=== PATIENT | male | born 1985 | race Caucasian/White ===

== ENCOUNTER 2017-05-24 21:15 | Emergency (ER) | payer MEDICAID ==
[~2017-05-24] VITALS: Ht 185.4 cm; Wt 82.0 kg
[~2017-05-24 21:15] MED LIST: ALPR2TAB2 PO; BENZ2AMP4 PO; CLON-275 PO; DIVA500T4 PO; RISP2TAB35 PO
[2017-05-24] MEDS ORDERED: ZIPRASIDONE 20 MG INJ IM ONE ×2 (21:19→22:00)
[2017-05-24 21:56] LABS: DAU SCREEN DISCLAIMER
[2017-05-24 22:00] LABS: HEMATOCRIT 41.3 % (39.2-51.8); HEMOGLOBIN 13.9 g/dL (13.7-18.0); WHITE BLOOD COUNT 7.3 x10^3/uL (3.4-10)
[2017-05-24] MEDS ORDERED: PLEASE ENTER HEIGHT AND WEIGHT MC SCH (22:00)
[2017-05-24 22:11] LABS: ASPARTATE AMINO TRANSFERASE 22 U/L (15-37); BLOOD UREA NITROGEN 11 mg/dL (7-18)
[2017-05-24 22:14] LABS: ACETAMINOPHEN < 2 mcg/mL (10-30)
[2017-05-24 22:38] VITALS: BP 93/46
== END 2017-05-24 23:36 | disposition home or self-care (01) ==
LOC: ED 23:25
DX: G40.919 Epilepsy, unspecified, intractable, without status epilepticus (principal); F10.10 Alcohol abuse, uncomplicated; F10.129 Alcohol abuse with intoxication, unspecified; J44.9 Chronic obstructive pulmonary disease, unspecified
CPT/HCPCS: 36415; 80053; 80307; 80329; 85025; 96372; 99284; J3486; G0480

== ENCOUNTER 2017-05-25 17:35 | Emergency (ER) | payer MEDICAID ==
[~2017-05-25] VITALS: Ht 185.4 cm; Wt 70.7 kg
[2017-05-25 17:38] VITALS: BP 116/78
== END 2017-05-25 19:08 | disposition home or self-care (01) ==
LOC: ED 18:15
DX: S90.112A Contusion of left great toe without damage to nail, initial encounter (principal); J44.9 Chronic obstructive pulmonary disease, unspecified; F17.200 Nicotine dependence, unspecified, uncomplicated; W23.0XXA Caught, crushed, jammed, or pinched between moving objects, initial encounter; Y93.89 Activity, other specified; Y92.098 Other place in other non-institutional residence as the place of occurrence of the external cause; Y99.8 Other external cause status
CPT/HCPCS: 99284

== ENCOUNTER 2017-07-05 17:19 | Emergency (ER) | payer MEDICAID ==
[~2017-07-05] VITALS: Ht 185.4 cm; Wt 68.0 kg
[2017-07-05] MEDS ORDERED: SODIUM CHLORIDE 0.9% 1,000 ML IV ONE (17:32)
[2017-07-05] MEDS ORDERED: LORazepam 2 MG/ML, 1ML ONE ×2 (17:55→18:55)
[2017-07-05] MEDS ORDERED: SODIUM CHLORIDE 0.9% 1,000ML IVBOLUS ONE (18:00)
[2017-07-05] MEDS ORDERED: LORazepam 2 MG/ML, 1ML IVPush ONE (18:00)
[2017-07-05] MEDS ORDERED: SODIUM CHLORIDE FLUSH 10ML SYR IVF ONE (18:00)
[2017-07-05 18:12] LABS: HEMATOCRIT 40.9 % (39.2-51.8); HEMOGLOBIN 13.8 g/dL (13.7-18.0); WHITE BLOOD COUNT 4.9 x10^3/uL (3.4-10)
[2017-07-05 18:17] LABS: DAU SCREEN DISCLAIMER
[2017-07-05 18:23] LABS: BLOOD UREA NITROGEN 6 mg/dL (7-18)
[2017-07-05 18:31] LABS: ACETAMINOPHEN < 2 mcg/mL (10-30); VALPROIC ACID < 3.0 mcg/mL (50.0-100.0)
[2017-07-05] MEDS ORDERED: LORazepam 2 MG/ML, 1ML IM ONE (19:00)
[2017-07-05] MEDS ORDERED: ZIPRASIDONE 20 MG INJ IM ONE ×2 (19:00→19:06)
[2017-07-05] MEDS ORDERED: DIVALPROEX 500 MG TAB.ER.24H PO ONE (19:30)
[2017-07-05 20:06] VITALS: BP 103/74
== END 2017-07-05 20:32 | disposition home or self-care (01) ==
LOC: ED 20:05
DX: R56.9 Unspecified convulsions (principal); J44.9 Chronic obstructive pulmonary disease, unspecified; F31.9 Bipolar disorder, unspecified; G43.909 Migraine, unspecified, not intractable, without status migrainosus
CPT/HCPCS: 36415; 70450; 80048; 80164; 80307; 80329; 82040; 85025; 93005; 96372; 96374; 99285; J2060; J3486; J7030; G0479; G0480

== ENCOUNTER 2017-09-14 21:22 | Emergency (ER) | payer MEDICAID ==
[~2017-09-14] VITALS: Ht 185.4 cm; Wt 72.0 kg
[2017-09-14 21:26] VITALS: BP 142/87
[2017-09-14] MEDS ORDERED: BACITRACIN ZINC OINT 500U/GM, 0.9 GM ONE (21:50)
[2017-09-14] MEDS ORDERED: DIPH,PERTUSS(ACELL),TET VAC/PF 0.5 ML IM-VACC ONE ×2 (21:50→22:00)
[2017-09-14] MEDS ORDERED: LIDOCAINE 1%, 20ML SQ ONE (22:00)
== END 2017-09-14 22:58 ==
LOC: ED 22:03
DX: S51.812A Laceration without foreign body of left forearm, initial encounter (principal); F10.20 Alcohol dependence, uncomplicated; J44.9 Chronic obstructive pulmonary disease, unspecified; G40.909 Epilepsy, unspecified, not intractable, without status epilepticus; F17.210 Nicotine dependence, cigarettes, uncomplicated; W26.0XXA Contact with knife, initial encounter; Y93.89 Activity, other specified; Y92.89 Other specified places as the place of occurrence of the external cause; Y99.8 Other external cause status
CPT/HCPCS: 12032; 90471; 90715; 99284; J3490

== ENCOUNTER 2017-10-05 23:47 | Emergency (ER) | payer MEDICAID ==
[~2017-10-05] VITALS: Ht 185.4 cm; Wt 70.5 kg
[2017-10-05 23:52] VITALS: BP 120/81
== END 2017-10-06 01:13 ==
LOC: ED 23:59
DX: R59.0 Localized enlarged lymph nodes (principal); R63.4 Abnormal weight loss; J44.9 Chronic obstructive pulmonary disease, unspecified
CPT/HCPCS: 99281

== ENCOUNTER 2017-12-04 15:54 | Emergency (ER) | payer MEDICAID ==
[~2017-12-04] VITALS: Ht 185.4 cm; Wt 73.6 kg
[2017-12-04 16:02] VITALS: BP 121/81
[2017-12-04] MEDS ORDERED: ASPIRIN 81 MG TABLET CHEW PO ONE (16:30)
[2017-12-04 16:39] LABS: BASOPHILS # (AUTO) 0.02 x10^3/uL (0-0.1); BASOPHILS % (AUTO) 0 % (0-1); EOSINOPHILS # (AUTO) 0.06 x10^3/uL (0-0.4); EOSINOPHILS % (AUTO) 1 % (1-7); LYMPHOCYTES # (AUTO) 1.53 x10^3/uL (1-3.4); LYMPHOCYTES % (AUTO) 22 % (22-44); MD NO; MEAN CORPUSCULAR HEMOGLOBIN 30.4 pg (27.5-34.5); MEAN CORPUSCULAR HGB CONC 33.6 g/dL (33.2-36.2); MEAN CORPUSCULAR VOLUME 90.5 fL (81-97); MEAN PLATELET VOLUME 7.5 fL (7.4-10.4); MONOCYTES # (AUTO) 0.44 x10^3/uL (0.2-0.8); MONOCYTES % (AUTO) 6 % (2-9); NEUTROPHILS # (AUTO) 5.04 x10^3/uL (1.8-6.8); NEUTROPHILS % (AUTO) 71 % (42-75); PLATELET COUNT 202 x10^3/uL (130-400); RED BLOOD COUNT 4.91 x10^6/uL (4.38-5.82); RED CELL DISTRIBUTION WIDTH 12.8 % (9.4-14.8)
[2017-12-04 16:48] LABS: ALBUMIN 4.1 g/dL (3.4-5.0); ANION GAP 7 mmol/L (5-15); CALCIUM 8.4 mg/dL (8.5-10.1); CHLORIDE 105 mmol/L (98-107)
[2017-12-04 16:53] LABS: CREATININE 0.86 mg/dL (0.7-1.3); TROPONIN I < 0.015 ng/mL (0.000-0.045)
== END 2017-12-04 19:23 | disposition left against medical advice (07) ==
LOC: ED 19:15
DX: R42 Dizziness and giddiness (principal)
CPT/HCPCS: 36415; 71045; 80048; 82040; 84484; 85025; 93005; 99285

== ENCOUNTER 2017-12-17 21:33 | Emergency (ER) | payer MEDICAID ==
[~2017-12-17] VITALS: Ht 185.4 cm; Wt 73.6 kg
[2017-12-17] MEDS ORDERED: SODIUM CHLORIDE 0.9% 1,000ML IVBOLUS ONE (22:00)
[2017-12-17] MEDS ORDERED: ONDANSETRON 2MG/ML, 2ML IVPush ONE (22:00)
[2017-12-17 22:06] VITALS: BP 117/72
[2017-12-17 22:10] LABS: BASOPHILS # (AUTO) 0.02 x10^3/uL (0-0.1); BASOPHILS % (AUTO) 0 % (0-1); EOSINOPHILS # (AUTO) 0.07 x10^3/uL (0-0.4); EOSINOPHILS % (AUTO) 1 % (1-7); LYMPHOCYTES # (AUTO) 1.38 x10^3/uL (1-3.4); LYMPHOCYTES % (AUTO) 18 % (22-44); MD NO; MEAN CORPUSCULAR HEMOGLOBIN 30.6 pg (27.5-34.5); MEAN CORPUSCULAR HGB CONC 33.8 g/dL (33.2-36.2); MEAN CORPUSCULAR VOLUME 90.7 fL (81-97); MEAN PLATELET VOLUME 6.9 fL (7.4-10.4); MONOCYTES # (AUTO) 0.55 x10^3/uL (0.2-0.8); MONOCYTES % (AUTO) 7 % (2-9); NEUTROPHILS # (AUTO) 5.48 x10^3/uL (1.8-6.8); NEUTROPHILS % (AUTO) 73 % (42-75); PLATELET COUNT 266 x10^3/uL (130-400); RED BLOOD COUNT 5.01 x10^6/uL (4.38-5.82); RED CELL DISTRIBUTION WIDTH 12.5 % (9.4-14.8)
[2017-12-17 22:21] LABS: ALANINE AMINOTRANSFERASE 21 U/L (12-78); ALBUMIN 4.1 g/dL (3.4-5.0); ANION GAP 8 mmol/L (5-15); CALCIUM 8.9 mg/dL (8.5-10.1); CHLORIDE 106 mmol/L (98-107); CREATININE 0.76 mg/dL (0.7-1.3)
[2017-12-17 22:23] LABS: ALKALINE PHOSPHATASE 71 U/L (45-117); BILIRUBIN,TOTAL 1.2 mg/dL (0.2-1.0); TOTAL PROTEIN 7.7 g/dL (6.4-8.2)
[2017-12-17] MEDS ORDERED: ONDANSETRON 2MG/ML, 2ML ONE (22:32)
== END 2017-12-17 23:02 | disposition home or self-care (01) ==
LOC: ED 22:30
DX: A09 Infectious gastroenteritis and colitis, unspecified (principal); R56.9 Unspecified convulsions; Z91.14 Patient's other noncompliance with medication regimen
CPT/HCPCS: 36415; 80053; 83690; 85025; 93005; 96361; 96374; 99285; J2405; J7030